=== PATIENT | female | born 1995 | race Caucasian/White ===

== ENCOUNTER 2017-03-23 06:17 | Day surgery (SDC) | payer OTHER ==
[~2017-03-23] VITALS: Ht 162.6 cm; Wt 79.4 kg
[2017-03-23 06:27] VITALS: BP 131/82
--- NOTE | 2017-03-23 06:49 | NUR ---
PT TAKEN TO BED 12.
--- NOTE | 2017-03-23 06:56 | NUR ---
21Y/F PRESENTS TO ER FOR DNC. NO PMH, NKA. PT STATES SHE WAS TOLD BY HER OBGYN TO COME TO ER FOR DNC. PT STATES SHE HAS NO VAGNIAL BLEEDING AT THIS TIME, HAS CRAMPING PAIN TO ABD, 08/15. LMP 01/06/17. [id number]. PT IN BED, COMFORT NEEDS MET.
--- NOTE | 2017-03-23 07:21 | NUR ---
REPORT GIVEN TO RANJAN TRANSFER OF CARE AT THIS TIME.
--- NOTE | 2017-03-23 07:25 | NUR ---
PT STAYING IN BED, DENIES PAIN OR DISCOMFORT AT THIS TIME. NO /S OF RESPIRATORY DISTRESS NOTED. TOLD PT IF SHE NEEDS ANY HELP LET US KNOW, PT VERBALIZED UNDERSTANDING.
[2017-03-23 08:11] LABS: BASOPHILS # (AUTO) 0.3 K/uL (0.00-0.22); BASOPHILS % (AUTO) 3.4 % (0.0-2.0); EOSINOPHILS # (AUTO) 0.1 K/uL (0-0.4); EOSINOPHILS % (AUTO) 1.3 % (0.0-4.0); HEMATOCRIT 37.9 % (36-48); HEMOGLOBIN 12.6 g/dL (12.0-16.0); LYMPHOCYTES # (AUTO) 1.9 K/uL (2.5-16.5); LYMPHOCYTES % (AUTO) 23.7 % (20.5-51.1); MEAN CORPUSCULAR HEMOGLOBIN 27 pg (27-31); MEAN CORPUSCULAR HGB CONC 33 g/dL (33-37); MEAN CORPUSCULAR VOLUME 81 fL (80-94); MONOCYTES # (AUTO) 0.7 K/uL (0.8-1.0); MONOCYTES % (AUTO) 8.3 % (1.7-9.3); NEUTROPHILS % (AUTO) 63.3 % (42.2-75.2); PLATELET COUNT (AUTO) 190 K/uL (140-450); RED BLOOD CELL COUNT(AUTO) 4.67 MIL/uL (4.20-5.40); RED CELL DISTRIBUTION WIDTH 13.1 % (11.6-13.7)
[2017-03-23] MEDS ORDERED: NACL 0.9% 1,000 ML IV ONE (08:20)
[2017-03-23 08:26] LABS: APPEARANCE,URINE CLEAR (CLEAR); BILIRUBIN,URINE NEGATIVE (NEGATIVE); BLOOD, URINE NEGATIVE (NEGATIVE); COLOR,URINE YELLOW (YELLOW); LEUKOCYTE ESTERASE ,URINE NEGATIVE (NEGATIVE); NITRITE, URINE NEGATIVE (NEGATIVE); PH,URINE 5.5 (5.0-9.0); UGLUCOSE NEGATIVE (NEGATIVE)
--- NOTE | 2017-03-23 09:00 | NUR ---
PT TAKEN TO OR VIA [facility], ACCOMPAINIED BY HARI.
[2017-03-23] MEDS ORDERED: SEVOFLURANE 250 ML BTL INH ONE (09:04)
[2017-03-23] MEDS ORDERED: ONDANSETRON 4 MG/2 ML VIAL ONE (09:04)
[2017-03-23] MEDS ORDERED: KETOROLAC 30 MG/ML VIAL ONE (09:04)
[2017-03-23] MEDS ORDERED: DEXAMETHASONE 4 MG/ML VIAL ONE (09:04)
[2017-03-23] MEDS ORDERED: fentaNYL 0.05 MG/ML VIAL ONE (09:18)
[2017-03-23 10:00] VITALS: BP 144/96
--- NOTE | 2017-03-23 10:00 | NUR ---
PATIENT ARRIVED ON UNIT VIA BED/GURNEY. ABLE TO AMBULATE FROM GURNEY TO UNIT BED. FAMILY MEMBERS AT BEDSIDE. NO DISTRESS NOTED. DENIES ANY PAIN AT THIS TIME. RESPIRATIONS EVEN, UNLABORED, ON ROOM AIR. V/S STABLE. COMPLAINS OF CRAMPING IN LOWER MID ABD, NEAR UTERUS. LUNGS CTA ON ALL LOBES. ABDOMEN SOFT. NO BLEEDING NOTED. ORIENTED PATIENT TO ROOM. REVIEWED PLAN OF CARE WITH PATIENT. PATIENT/FAMILY VERBALIZED UNDERSTANDING. SAFETY MEASURES IN PLACE, CALL LIGHT WITHIN REACH. WILL CONTINUE TO MONITOR.
[2017-03-23 11:00] VITALS: BP 130/68
--- NOTE | 2017-03-23 11:00 | NUR ---
PATIENT LYING IN BED TALKING WITH FAMILY MEMBERS AT BEDSIDE. NO DISTRESS NOTED. DENIES ANY PAIN. RESPIRATIONS EVEN, UNLABORED, ON ROOM AIR. AAOX4, CALM, COOPERATIVE, V/S STABLE. SAFETY MEASURES IN PLACE, CALL LIGHT WITHIN REACH. WILL CONTINUE TO MONITOR.
[2017-03-23 12:00] VITALS: BP 128/69
--- NOTE | 2017-03-23 14:10 | NUR ---
PATIENT LYING IN BED IN STABLE CONDITION. NO DISTRESS NOTED. VITAL SIGNS STABLE. PATIENT TOLERATED LUNCH WELL AND HAS VOIDED WITHOUT ANY PROBLEMS. ABLE TO AMBULATE WITH STEADY GAIT. PATIENT TO BE DISCHARGED HOME VIA PRIVATE VEHICLE. DISCHARGE INSTRUCTIONS/EDUCATION GIVEN TO PATIENT/FAMILY MEMBERS, ALL QUESTIONS FROM PATIENT/FAMILY ANSWERED, DISCUSSED FOLLOW-UP INSTRUCTIONS AND POST-CARE INSTRUCTIONS. ID BANDS REMOVED, IV SITE REMOVED WITH MINIMAL BLOOD AND IV LUMEN COMPLETELY INTACT. DISCHARGE INSTRUCTIONS GIVEN TO PATIENT IN PREFERRED LANGUAGE OF [place]UG[place]. PATIENT DISCHARGED HOME VIA PRIVATE VEHICLE IN STABLE CONDITION WITH FAMILY MEMBERS.
== END 2017-03-23 14:30 | disposition home or self-care (01) ==
LOC: MED 06:17 → MDS 08:56 → MTU 08:56 → MDS 14:30
PROVIDERS: ATTEND Obstetrics & Gynecology
DX: O02.1 Missed abortion (principal); Z3A.09 9 weeks gestation of pregnancy
CPT/HCPCS: 36415; 59820; 76817; 81003; 84702; 85025; 86900; 86901; 88305; 99285; J1100; J1885; J2405; J3010; J7030; J7120; Q0092